=== PATIENT | female | born 1990 | race African-American/Black ===

== ENCOUNTER 2024-03-27 21:59 | Emergency (ER) | payer SELFPAY ==
[~2024-03-27] VITALS: Ht 157.5 cm; Wt 104.0 kg
[2024-03-27 22:05] VITALS: O2SAT 100
[2024-03-27 23:14] LABS: CHLORIDE 109 mEq/L (98-107); POTASSIUM 3.2 mEq/L (3.5-5.1); SODIUM 141 mEq/L (136-145)
[2024-03-27 23:15] LABS: CALCIUM 9.6 mg/dL (8.7-10.4); CARBON DIOXIDE 25 mEq/L (21-32)
[2024-03-27 23:20] LABS: BASOPHILS % 0.5 % (0.0-2.0); CREATININE 0.9 mg/dL (0.6-1.0); EOSINOPHILS % 1.9 % (0.0-5.0); GLUCOSE 108 mg/dL (70-105); HEMOGLOBIN. 13.4 g/dL (12.0-16.0); LYMPHOCYTES % 26.2 % (20.0-50.0); MEAN CORPUSCULAR HEMOGLOBIN 29.3 pg (28.0-32.0); MEAN CORPUSCULAR HGB CONC 34.2 g/dL (31.0-37.0); MEAN CORPUSCULAR VOLUME 85.6 fL (81.0-99.0); MEAN PLATELET VOLUME 9.8 fl (7.4-10.4); MONOCYTES % 7.6 % (2.0-8.0); NEUTROPHILS % 63.8 % (40.0-76.0); PLATELET 225 x1000/uL (130-400); RED BLOOD CELL COUNT 4.56 mill/uL (4.2-5.4); RED CELL DISTRIBUTION WIDTH 13.7 % (11.6-14.6); UREA NITROGEN BLOOD 12 mg/dL (9-23); WHITE BLOOD COUNT 9.9 x1000/uL (4.5-11.0)
[2024-03-27] MEDS: POTASSIUM CHLORIDE 20MEQ/PACKET PO NR (23:50)
[2024-03-27] MEDS ORDERED: POTA-204 MT (23:51)
[2024-03-27 23:59] LABS: HCG SCREEN NEGATIVE
[2024-03-28 00:15] VITALS: BP 136/58; PULSE 84; RESP 16; TEMP 36.55848; O2SAT 99
== END 2024-03-28 00:20 | disposition home or self-care (01) ==
LOC: ER 21:59
DX: R00.2 Palpitations (principal); E87.6 Hypokalemia; F41.9 Anxiety disorder, unspecified; Z79.899 Other long term (current) drug therapy
CPT/HCPCS: 36415; 71045; 80048; 84703; 85025; 93005; 99284; 99285